=== PATIENT | female | born 1955 | race Caucasian/White ===

== ENCOUNTER 2017-09-27 17:02 | Emergency (ER) | payer MEDICARE ==
[2017-09-27 17:47] VITALS: BP 132/57
--- NOTE | 2017-09-27 18:58 | UC ---
Sandra Panchal Emily, scribed for Megan Marin MD on 09/27/17 at 1849 . Ear Complaint HPI - HPI Summary HPI Summary: This patient is a 62 year old F presenting to urgent care with a chief complaint of L ear pain that began 1 month ago. Pt states went to PCP 1 week ago and took a course of zithromax. Pt states continued to have discomfort. Pt denies drainage. Pt states has been wearing "tight fitting" ear plugs to help prevent water. Pt has used Q tips. Pt states continues with pain. Pt has taken APAP and an occasional tramadol for discomfort. Pt denies hearing changes. Pt has a partial bridge in mouth. Pt states feel discomfort intermittently from left ear to upper jaw. Pt reports mild discomfort along cheek. no fever, chills mild discomfort with chewing. No neck or back pain Pt has appt with ENT on Wednesday Patients medications reviewed this visit. - History of Current Complaint Chief Complaint: UCEar Stated Complaint: EAR PAIN Time Seen by Provider: 09/27/17 18:28 Hx Obtained From: Patient Onset/Duration: Sudden Onset, Lasting Weeks, Still Present Severity Initially: Severe Severity Currently: Severe Pain Intensity: 10 Pain Scale Used: 0-10 Numeric Aggravating Factors: Nothing Alleviating Factors: Nothing - Allergies/Home Medications Allergies/Adverse Reactions: Allergies Allergy/AdvReac Type Severity Reaction Status Date / Time Codeine Allergy Severe Hives Verified 09/27/17 17:47 Penicillins [PCN] Allergy Severe Hives Verified 09/27/17 17:47 Sulfa Antibiotics Allergy Severe hives, sob Verified 09/27/17 17:47 Bupropion [From Wellbutrin] Allergy Unknown Unknown Verified 09/27/17 17:47 Reaction Details Albuterol [From Ventolin] Allergy Unknown Verified 09/27/17 17:47 Reaction Details Morphine Allergy Anxiety Verified 09/27/17 17:47 Pregabalin [From Lyrica] Allergy Unknown Verified 09/27/17 17:47 Reaction Details Sertraline Allergy Unknown Verified 09/27/17 17:47 Reaction Details Solifenacin [From Vesicare] Allergy Unknown Verified 09/27/17 17:47 Reaction Details MMR Vaccine Allergy Unknown Uncoded 09/27/17 17:47 Reaction Details PMH/Surg Hx/FS Hx/Imm Hx Previously Healthy: No Endocrine History: Other Other Endocrine History: Negative diabetes Respiratory History: COPD Other History Of: Negative For: Anticoagulant Therapy - Surgical History Surgical History: Yes Surgery Procedure, Year, and Place: CERVICAL FUSION 2006,. Bilateral CARPAL TUNNEL,. TRIGGER FINGER RT,. RT SHOULDER RTC,. L4-L5 LAMINECTOMY 10/11,. PARTIAL HYSTERCTOMY,. TONSILECTOMY,. appendectomy - Family History Known Family History: Positive: None Family History: no known medical issues in family lineage - Social History Occupation: Retired Lives: With Family Alcohol Use: Rare Substance Use Type: None Smoking Status (MU): Current Every Day Smoker Type: Cigarettes Amount Used/How Often: 4-5 CIG/DAY Have You Smoked in the Last Year: Yes Household Exposure Type: Cigarettes - Immunization History Most Recent Influenza Vaccination: this season Most Recent Tetanus Shot: within 10 yrs Most Recent Pneumonia Vaccination: states she had, but unable to remember when Review of Systems Constitutional: Other - Negative fever Eyes: Negative ENT: Other - Positive L ear pain. Negative problems hearing, and bleeding from ear All Other Systems Reviewed And Are Negative: Yes Physical Exam Triage Information Reviewed: Yes Appearance: Well-Appearing, No Pain Distress, Well-Nourished Vital Signs: Initial Vital Signs Temp 97.7 F 09/27/17 17:42 Pulse 94 09/27/17 17:42 Resp 18 09/27/17 17:42 BP 132/57 09/27/17 17:42 Pulse Ox 98 09/27/17 17:42 Vital Signs Reviewed: Yes Eye Exam: Normal Eyes: Positive: Conjunctiva Clear ENT: Positive: Pharyngeal erythema, Other - right TM - small scab in canal. No bleeding. left + bloody scab with surrrounding mild edema. No erythema No drainage no mastoid pain mild discomfort over TMJ - no popping or slipping no intraoral edema or lesion. No discomfort along gumline. Negative: Nasal congestion Dental Exam: Normal Neck exam: Normal Neck: Positive: Supple, Nontender, No Lymphadenopathy Respiratory Exam: Normal Respiratory: Positive: Chest non-tender, Lungs clear, Normal breath sounds, No respiratory distress, No accessory muscle use Cardiovascular Exam: Normal Cardiovascular: Positive: RRR, No Murmur, Pulses Normal Abdominal Exam: Normal Abdomen Description: Positive: Nontender, No Organomegaly, Soft Musculoskeletal Exam: Normal Neurological Exam: Normal Psychological Exam: Normal Skin Exam: Normal Ear Complaint Course/Dx - Course Course Of Treatment: Pt with pain left ear ongoing with some radiation left jaw. Pt with scabs in b/l ears left ear with mild erythema at site of scab. Pt with mild discomfort over left TMJ. Will start ciprodex. APAP with prn Tramadol pt has at home. ENT on Wednesday. d/w pt at length - discomfort may be related to TMJ. recommend heat. return precautions - Differential Dx/Diagnosis Provider Diagnoses: left ear pain. left ear wound Discharge - Discharge Plan Condition: Stable Disposition: HOME Prescriptions: Ciproflox/Dexameth OTIC.SUSP* [Ciprodex OTIC.SUSP*] 1 drop .SEE ORDER TID #1 btl Patient Education Materials: Otitis Externa (ED), Earache (ED) Referrals: Nohelia Broussard MD [Primary Care Provider] - Additional Instructions: - Apply drops to left ear as instructed - Okay to take Tylenol every 6 hours for pain. For severe pain, okay to take Tramadol as previously prescribed. - Keep your appointment as scheduled with the ear, nose and throat specialist on Wednesday as previously scheduled - okay to apply moist heat to your jaw, outer ear area - Avoid putting Q tips or other objects in your ear - call your doctor or go to the emergency department with other questions or concerns The documentation as recorded by the Sandra ghosh Emily accurately reflects the service I personally performed and the decisions made by me, Megan Marin MD.
== END 2017-09-27 19:15 | disposition home or self-care (01) ==
LOC: UCEAST 17:02
DX: S01.302A Unspecified open wound of left ear, initial encounter (principal); X58.XXXA Exposure to other specified factors, initial encounter; Y93.9 Activity, unspecified; Y92.9 Unspecified place or not applicable; H92.02 Otalgia, left ear; R68.84 Jaw pain; J44.9 Chronic obstructive pulmonary disease, unspecified; Z88.5 Allergy status to narcotic agent; Z88.0 Allergy status to penicillin; Z88.2 Allergy status to sulfonamides; Z88.7 Allergy status to serum and vaccine; F17.210 Nicotine dependence, cigarettes, uncomplicated
CPT/HCPCS: 99212; G0463

== ENCOUNTER 2024-09-11 13:04 | Inpatient (IN) ==
[2024-09-11 14:28] LABS: INR 1.33 (0.85-1.14)
[2024-09-11] MEDS: methylPREDNISolone SOD SUCC 125 mg 2 ML VIAL IV ONE (14:33)
[2024-09-11 14:39] LABS: High Sens Troponin Baseline 36 pg/mL (<15)
[2024-09-11 14:49] LABS: Hematocrit 35.7 % (35-45); Hemoglobin 11.3 g/dL (11.5-14.3); Mean Corpuscular Hemoglobin 25.9 pg (27-33); Mean Corpuscular Hgb Conc 31.6 g/dL (31-36); Mean Platelet Volume 7.7 fL (7.5-11.2); Platelet Count 427 10^3/uL (150-450); Red Blood Count 4.36 10^6/uL (3.63-4.92); Red Cell Distribution Width 34.2 % (12-17); White Blood Count 31.5 10^3/uL (3.8-11.8)
[2024-09-11 14:56] LABS: ALT 38 U/L (7-52); AST 35 U/L (13-39); Albumin 3.9 g/dL (3.2-5.2); Albumin/Globulin Ratio 1.3 (1-3); Alkaline Phosphatase 148 U/L (35-149); Anion Gap 10 mmol/L (2-16); Blood Urea Nitrogen 18 mg/dL (6-24); CO2 Carbon Dioxide 31 mmol/L (22-32); Calcium 9.3 mg/dL (8.6-10.3); Chloride 100 mmol/L (101-111); Creatinine, Serum 0.71 mg/dL (0.51-0.95); Globulin 2.9 g/dL (2-4); Glucose 158 mg/dL (70-100); Potassium 3.9 mmol/L (3.5-5.0); Sodium 141 mmol/L (135-145); Total Bilirubin 0.4 mg/dL (0.2-1.0); Total Protein 6.8 g/dL (6.4-8.9); eGFR CKD-EPI 90.8 (>60)
[2024-09-11] MEDS: EPINEPHrine,Rac 2.25% NEB.SOL 0.5 ML INH ONE (15:08)
[2024-09-11 15:26] LABS: ABS Basophils 0.1 10^3/uL (0.0-0.1); ABS Lymphocytes 1.2 10^3/uL (1.0-4.8); ABS Monocytes 1.5 10^3/uL (0.0-0.9); ABS Neutrophils 28.7 10^3/uL (1.5-7.6); ABS Nucleated RBC 0.02 10^3/ul; Anisocytosis 2+; Lymphocyte % 3.9 %; Nucleated Red Blood Cells % 0.1 %/100WBC (0.0-0.8)
[2024-09-11] MEDS: Albuterol 2.5mg/3 ml (0.083%) NEB.SOLN INH ONE ×2 (16:18→17:22)
[2024-09-11 16:20] LABS: C Reactive Protein 537.17 mg/L (<8.01)
[2024-09-11 16:54] LABS: High Sensitivity Troponin 1 Hr 264 pg/mL (<15)
[2024-09-11] MEDS: cefTRIAXone 1 gm/50 mL D5W 1 GM/50 ML BAG IV ONE (17:28)
[2024-09-11] MEDS: Azithromycin 500 mg/250 ml NS 500 MG/250 ML BAG IVPB ONE (17:30)
[2024-09-11] MEDS: Lactated Ringers 1000 ml BAG 1,000 ML IV SCH (20:05)
[2024-09-11 21:08] LABS: High Sensitivity Troponin 1 Hr 25 pg/mL (<15)
[2024-09-11 21:30] LABS: % Iron Saturation 8 % (15-55); .Transferrin 173 mg/dL (203-362); Iron < 20 ug/dL (50-212); Total Iron Binding Capacity 242 mcg/dL (250-450); Unsaturated Iron Binding 222 ug/dL
[2024-09-11] MEDS: Levalbuterol 0.63MG/3ML NEB UNIT OF USE INH SCH (21:43)
[2024-09-11 21:55] LABS: Vitamin B12 > 1450 pg/mL (180-914)
[2024-09-11 21:56] LABS: Folate > 20.00 ng/mL (5.90-24.80)
[2024-09-11] MEDS: Enoxaparin 40 MG/0.4 ML SYR SUBCUT SCH (21:59)
[2024-09-11] MEDS: Iohexol 350 (CONTRAST) 500 ML MDV IV ONE (22:32)
[2024-09-12] MEDS: Albuterol/Ipratropium NEB.SOL (2.5/0.5 MG) 3 ML NEB.SOLN INH SCH (00:11)
[2024-09-12 06:35] LABS: Hematocrit 32.3 % (35-45); Hemoglobin 10.3 g/dL (11.5-14.3); Mean Corpuscular Hemoglobin 26.2 pg (27-33); Mean Corpuscular Volume 81.9 fL (80-97); Mean Platelet Volume 7.9 fL (7.5-11.2); Platelet Count 377 10^3/uL (150-450); Red Blood Count 3.94 10^6/uL (3.63-4.92); Red Cell Distribution Width 34.1 % (12-17)
[2024-09-12 06:42] LABS: Albumin 3.5 g/dL (3.2-5.2); Albumin/Globulin Ratio 1.3 (1-3); Calcium 9.2 mg/dL (8.6-10.3); Creatinine, Serum 0.6 mg/dL (0.51-0.95); Globulin 2.7 g/dL (2-4); Magnesium 2.1 mg/dL (1.9-2.7); Potassium 4.4 mmol/L (3.5-5.0); Total Bilirubin 0.3 mg/dL (0.2-1.0); Total Protein 6.2 g/dL (6.4-8.9); eGFR CKD-EPI 95.9 (>60)
[2024-09-12] MEDS: methylPREDNISolone SOD SUCC 40 mg/ml 1 ml VIAL IV SCH ×2 (07:52→20:30)
[2024-09-12] MEDS: Cholecalciferol (VIT D3) 1,000 unit TAB PO SCH (07:52)
[2024-09-12] MEDS ORDERED: methylPREDNISolone SOD SUCC 40 mg/ml 1 ml VIAL IV SCH (08:00)
[2024-09-12 08:06] LABS: ABS Lymphocytes 1.4 10^3/uL (1.0-4.8); ABS Monocytes 0.9 10^3/uL (0.0-0.9); ABS Neutrophils 26.7 10^3/uL (1.5-7.6); ABS Nucleated RBC 0.01 10^3/ul
[2024-09-12] MEDS ORDERED: Umeclidinium 62.5 MDI(NF) MDI INH SCH (09:00)
[2024-09-12] MEDS: cefTRIAXone 1 gm/50 mL D5W 1 GM/50 ML BAG IV SCH (15:30)
[2024-09-12] MEDS: Azithromycin 500 mg/250 ml NS 500 MG/250 ML BAG IVPB SCH (16:36)
[2024-09-12] MEDS ORDERED: cefTRIAXone 1 gm/50 mL D5W 1 GM/50 ML BAG IV SCH (17:00)
[2024-09-12] MEDS ORDERED: Azithromycin 500 mg/250 ml NS 500 MG/250 ML BAG IVPB SCH (17:30)
[2024-09-12] MEDS: Mometasone/Formoter 200/5 MDI INH SCH (19:01)
[2024-09-13 09:42] LABS: ABS Basophils 0.1 10^3/uL (0.0-0.1); ABS Monocytes 0.7 10^3/uL (0.0-0.9); ABS Neutrophils 23.7 10^3/uL (1.5-7.6); ABS Nucleated RBC 0.02 10^3/ul; Hematocrit 34.3 % (35-45); Hemoglobin 11.2 g/dL (11.5-14.3); Lymphocyte % 7.4 %; Mean Corpuscular Hemoglobin 26.4 pg (27-33); Mean Corpuscular Hgb Conc 32.5 g/dL (31-36); Mean Corpuscular Volume 81.1 fL (80-97); Mean Platelet Volume 7.7 fL (7.5-11.2); Nucleated Red Blood Cells % 0.1 %/100WBC (0.0-0.8); Platelet Count 484 10^3/uL (150-450); Red Blood Count 4.23 10^6/uL (3.63-4.92); Red Cell Distribution Width 34.3 % (12-17); White Blood Count 26.5 10^3/uL (3.8-11.8)
[2024-09-13 10:09] LABS: Spherocytes 2+; Toxic Granulation 1+
[2024-09-13 11:25] LABS: Calcium 9.5 mg/dL (8.6-10.3); Creatinine, Serum 0.62 mg/dL (0.51-0.95); Magnesium 2.2 mg/dL (1.9-2.7); Potassium 4.2 mmol/L (3.5-5.0); eGFR CKD-EPI 95.1 (>60)
[2024-09-14 07:05] LABS: Hematocrit 32.4 % (35-45); Hemoglobin 10.4 g/dL (11.5-14.3); Mean Corpuscular Hemoglobin 26.3 pg (27-33); Mean Corpuscular Hgb Conc 32.2 g/dL (31-36); Mean Corpuscular Volume 81.7 fL (80-97); Mean Platelet Volume 7.5 fL (7.5-11.2); Platelet Count 440 10^3/uL (150-450); Red Blood Count 3.97 10^6/uL (3.63-4.92); Red Cell Distribution Width 34.6 % (12-17); White Blood Count 22.9 10^3/uL (3.8-11.8)
[2024-09-14 07:08] LABS: Calcium 8.8 mg/dL (8.6-10.3); Creatinine, Serum 0.58 mg/dL (0.51-0.95); Magnesium 2.2 mg/dL (1.9-2.7); Potassium 4.5 mmol/L (3.5-5.0); eGFR CKD-EPI 96.7 (>60)
[2024-09-14] MEDS ORDERED: Albuterol HFA INHALER 8 gm MDI INH PRN (07:32)
[2024-09-14] MEDS: Albuterol/Ipratropium NEB.SOL (2.5/0.5 MG) 3 ML NEB.SOLN INH PRN (07:53)
[2024-09-14 08:30] LABS: ABS Basophils 0.1 10^3/uL (0.0-0.1); ABS Lymphocytes 1.6 10^3/uL (1.0-4.8); ABS Monocytes 0.7 10^3/uL (0.0-0.9); ABS Neutrophils 20.5 10^3/uL (1.5-7.6); ABS Nucleated RBC 0.01 10^3/ul; Lymphocyte % 7.1 %; RBC Morphology Normal (Normal)
[2024-09-14 09:48] VITALS: BP 123/51
== END 2024-09-14 11:40 | disposition home or self-care (01) | DRG 871 ==
LOC: ED 13:04 → EDHOLD 13:04 → OBSVTOIN 18:02 → SUATTDRO 18:02 → MEDTELE 21:15
PROVIDERS: ADMIT Internal Medicine; ATTEND Student in an Organized Health Care Education/Training Program